=== PATIENT | male | born 1995 | race Caucasian/White ===

== ENCOUNTER 2020-01-25 21:45 | Emergency (ER) | payer OTHER ==
--- NOTE | 2020-01-25 22:21 | ED Physician Documentation ---
History of Present Illness - Stated complaint Stated Complaint: NUMB FINGERS - Chief complaint Chief Complaint: Ext Problem - Additonal information Additional information: 24-year-old male presents to the emergency department with acute onset left hand numbness. Approximately 1 hour prior to arrival the patient was at his house study and when he noted sudden onset left hand numbness. no loss of motor movement. He denies that he had chest pain or shortness of breath. He had no facial droop or slurred speech. His GF reports that he was unable to speak on the phone with his dad. PT reports thats he became shaking and was worried that his BP was dropping to low. he was able to "calm himself" with deep breathing. He has no history of similar. He reports that the numbness lasted about 5 minutes before it resolved. He denies that he had neck pain or headache. No diplopia. His GF who is with him was concerned that it may have been his heart so she gave him 4 baby aspirin. He does report that when he was in college she was diagnosed with a right bundle branch block. pmh: ? RBBB on ecg. hair loss meds: finasteride soc: no tobacco, illicit FH: negative for sudden cardiac or stroke in young Review of Systems Constitutional: reports: Reviewed and negative Eyes: reports: Reviewed and negative Nose: reports: Reviewed and negative Throat: reports: Reviewed and negative Cardiac: reports: Reviewed and negative Respiratory: reports: Reviewed and negative GI: reports: Reviewed and negative : reports: Reviewed and negative Skin: reports: Reviewed and negative Musculoskeletal: reports: Reviewed and negative Neurologic: reports: Numbness (left hand). denies: Generalized weakness, Focal weakness, Difficulty speaking, Near syncope, Syncope, Seizure, Confused, Altered mental status, Headache, Head injury, LOC Psychiatric: reports: Reviewed and negative Endocrine: reports: Reviewed and negative PD PAST MEDICAL HISTORY - Past Medical History Past Medical History: Yes Cardiovascular: Other Other Past Medical History: BBB - Past Surgical History Past Surgical History: No - Allergies Allergies/Adverse Reactions: Allergies Allergy/AdvReac Type Severity Reaction Status Date / Time No Known Drug Allergies Allergy Verified 01/25/20 21:58 - Social History Does the pt smoke?: No Smoking Status: Never smoker PD ED PE EXPANDED - General General: Alert, No acute distress, Well developed/nourished, Anxious - HEENT HEENT: Atraumatic, PERRL, EOMI - Eyes Eyes: PERRL, Normal accommodation - Neck Neck: Supple w/out meningeal sx, Other (FULL ROM in all planes. no painwith axial loading. no hand numbnes swith axial loading). No: No tenderness, Soft tissue TTP - Cardiac Cardiac: Regular Rate, Regular Rhythm, Radial strong equal, Pedal strong equal. No: Murmur Present, Cap refill < 2 sec - Respiratory Respiratory: Clear to ausultation eve. No: Distress, Labored - Abdomen Abdomen: Normal Bowel sounds. No: Tender to palpation - Derm Derm: Normal color, Warm and dry. No: Rash - Extremities Extremities: Normal, Other (+ phalens bilaterally) - Neuro Neuro: Alert and Oriented X 3, CNII-XII intact, Cerebellar nl, Normal gait, Normal finger nose, Normal speech - GCS Eye Opening: Spontaneous Motor: Obeys Commands Verbal: Oriented Total: 15 Results - Vitals Vitals: Vital Signs - 24 hr 01/25/20 21:54 Temperature 36.2 C L Heart Rate 67 Respiratory 16 Rate Blood Pressure 149/74 H O2 Saturation 98 Oxygen O2 Source Room air - EKG (time done) 2220 Rate: Rate (enter#) (62) Rhythm: NSR [place]: Normal Intervals: Normal DE QRS: Normal Ischemia: ST elevation c/w repol Compare to prior EKG: Old EKG unavailable Computer interpretation: Agree with computer PD MEDICAL DECISION MAKING - ED course Complexity details: reviewed results, re-evaluated patient, considered differential, d/w patient, d/w family ED course: 24-year-old male presents to the emergency department with acute onset left hand numbness that lasted about 5 minutes when he was studying this evening. At the time he had no facial droop slurred speech or arm or leg weakness. However his girlfriend reports that he was unable to speak for short period of time. Patient himself is dismissive of the symptoms and feels that he was likely having a panic attack.My suspicion that he has a central etiology (CVA/TIA) is exceedingly low, but can not be ruled out at this time. CT of the head is pending. But he may need an MRI to r/o TIA At the time of exam here in the emergency department his neuro and cerebellar exam is unremarkable. However he and his girlfriend have worried that it could have been a heart event as he does have a history of a right bundle branch block therefore we will proceed with EKG, chest x-ray and troponin. He did have a positive Phalen's exam which may explain some partial finger numbness but certainly not the whole hand. However it also does not seem to be cervical radiculopathy as he had no history of similar and no increase in numbness with axial loading. Pt will be signed out to my [facility] colleague Dr. Eddy to follow up on his labs/CT head Departure - Departure Clinical Impression: Numbness of left hand Condition: Stable Record reviewed to determine appropriate education?: Yes Comments: Dom you were seen today for left hand numbness. Your EKG looks fairly unremarkable for your age. Your chest x-ray and labs are also normal. At this time do not feel that this is likely caused by your heart or by your brain (stroke or TIA). It is most likely simply caused by compression of one of the nerves in your arm from the elbow or wrist. If at any point you develop a headache, had slurred speech arm or leg weakness or the symptoms return please return to the emergency department for a second look
[2020-01-25 22:40] LABS: BASOPHILS % (AUTO) 0.4 %; EOSINOPHILS # (AUTO) 0.1 10^3/uL (0.0-0.7); EOSINOPHILS % (AUTO) 2.3 %; LYMPHOCYTES # (AUTO) 2.4 10^3/uL (1.5-3.5); LYMPHOCYTES % (AUTO) 42.8 %; MEAN CORPUSCULAR HEMOGLOBIN 29.2 pg (27.0-31.0); MEAN CORPUSCULAR HGB CONC 34.3 g/dL (32.0-36.0); MEAN CORPUSCULAR VOLUME 85.2 fL (80.0-94.0); MEAN PLATELET VOLUME 10.2 fL (7.4-11.4); MONOCYTES # (AUTO) 0.5 10^3/uL (0.0-1.0); MONOCYTES % (AUTO) 9.3 %; NEUTROPHILS # (AUTO) 2.6 10^3/uL (1.5-6.6); PLT - PLATELET COUNT 198 10^3/uL (130-450); RED BLOOD COUNT 5.13 10^6/uL (4.70-6.10); WHITE BLOOD COUNT 5.7 x10^3/uL (4.8-10.8)
[2020-01-25 22:53] LABS: ALBUMIN 4.8 g/dL (3.2-5.5); ALBUMIN/GLOBULIN RATIO 1.6 (1.0-2.2); BILIRUBIN,TOTAL 0.8 mg/dL (0.2-1.0); CALCIUM 9.2 mg/dL (8.5-10.3); TOTAL PROTEIN 7.8 g/dL (6.7-8.2)
[2020-01-26 02:19] VITALS: BP 113/78
--- NOTE | 2020-01-26 03:08 | ED Physician Documentation ---
ED Addendum - Addendum Addendum: 01/26/20 03:03 Care was assumed for follow-up of his tests upon change of shift. The patient had had transient numbness in the left arm and subsequently noted difficulty speaking but was feeling anxious at the time and not sure if they developed concurrently or sequentially. Initial work-up was undertaken to evaluate for heart as well as cerebrovascular causes. His EKG showed early repolarization. Troponin was negative. CT of the head did not show any acute obvious process. I updated him on the findings. He was feeling more inclined to think the trouble speaking was related to the anxiety of the arm numbness. As an isolated symptom, I think the numbness in the arm without weakness was more likely peripheral related to position and perhaps stretching of the nerves. We did discuss as the previous provider had, if there was concern for central cause then an MRI would be appropriate. He did not want to stay overnight however. At this point with resolution of symptoms and having been transient only, I feel the aspirin that he had taken was appropriate and on shared decision I felt it fairly unlikely for him to be having recurrent symptoms in the short-term. He could follow-up with primary care for further evaluation. To return if recurrent symptoms. They did ask about coming back for an MRI and a did discuss with him that scheduled patients and in patients have priority on the MRI schedule and outpatients are lower priority unless emergent criteria. Therefore would not be able to promise getting an MRI outpatient promptly.
--- NOTE | 2020-01-26 07:30 | CT Report ---
PROCEDURE: HEAD WO INDICATIONS: left arm numbness TECHNIQUE: Noncontrast 4.5 mm thick angled axial sections acquired from the foramen magnum to the vertex. For r adiation dose reduction, the following was used: automated exposure control, adjustment of mA and/or kV according to patient size. COMPARISON: None. FINDINGS: Image quality: Excellent. CSF spaces: Basal cisterns are patent. No extra-axial fluid collections. Ventricles are normal in size and shape. Brain: No midline shift. No intracranial masses or hemorrhage. Dennis-white matter interface is norm al. Skull and face: Calvarium and visualized facial bones are intact, without suspicious lesions. Sinuses: Visualized sinuses and mastoids are clear. IMPRESSION: CT head without acute intracranial abnormalities. No mass or mass effect. No significant discrepancy with initial interpretation by overnight radiologist. Reviewed by: Andrea Husain MD on 01/26/2020 7:28 AM PDT Approved by: Andrea Husain MD on 01/26/2020 7:28 AM PDT Station ID: [id number]
--- NOTE | 2020-01-26 08:28 | XRAY Report ---
PROCEDURE: Chest 1 View X-Ray INDICATIONS: Chest Pain TECHNIQUE: One view of the chest was acquired. COMPARISON: None FINDINGS: Surgical changes and devices: None. Lungs and pleura: No pleural effusions or pneumothorax. Lungs are clear. Mediastinum: Mediastinal contours appear normal. Heart size is normal. Bones and chest wall: No suspicious bony lesions. Overlying soft tissues appear unremarkable. IMPRESSION: No acute pulmonary process. The above findings are concordant with preliminary report. Reviewed by: Makayla Cunha MD on 01/26/2020 8:27 AM PDT Approved by: Makayla Cunha MD on 01/26/2020 8:27 AM PDT Station ID: [id number]
== END 2020-01-26 02:19 | disposition home or self-care (01) ==
LOC: ED 21:45
DX: R20.2 Paresthesia of skin (principal); I45.10 Unspecified right bundle-branch block
CPT/HCPCS: 36415; 70450; 71045; 80053; 83690; 84484; 85025; 85651; 93005; 99284